=== PATIENT | male | born 1975 | race Caucasian/White ===

== ENCOUNTER 2018-09-03 14:49 | Emergency (ER) | payer BC ==
[~2018-09-03] VITALS: Ht 182.9 cm; Wt 136.4 kg
[2018-09-03 15:42] LABS: INFLUENZA A AMPLIFICATION POSITIVE (NEGATIVE); INFLUENZA B AMPLIFICATION NEGATIVE (NEGATIVE)
[2018-09-03] MEDS ORDERED: ALBUTEROL SULFATE 2.5 MG/0.5 ML INH NEB SOLN NEB ONE (17:45)
[2018-09-03] MEDS ORDERED: VENTAER INH (18:25)
[2018-09-03] MEDS ORDERED: TESS100C PO (18:25)
[2018-09-03] MEDS ORDERED: OSEL75CA PO (18:25)
[2018-09-03 18:37] VITALS: BP 149/75
== END 2018-09-03 18:38 | disposition home or self-care (01) ==
LOC: M ED 14:49
DX: J20.9 Acute bronchitis, unspecified (principal); J09.X2 Influenza due to identified novel influenza A virus with other respiratory manifestations; I10 Essential (primary) hypertension; E66.9 Obesity, unspecified

== ENCOUNTER → 2021-11-25 | Outpatient (REF) | payer BC ==
[~2021-11-25] MED LIST: OSEL75CA PO; TESS100C PO; VENTAER INH
[2021-11-25 13:29] LABS: RSV AMPLIFICATION NEGATIVE (NEGATIVE)
== END ==
LOC: M LAB REF 12:03
PROVIDERS: ATTEND Physician Assistant
DX: R50.9 Fever, unspecified (principal)

== ENCOUNTER → 2022-03-22 | Outpatient (REF) | payer BC | LOC: M SFHCPLAZ 16:49 | PROVIDERS: ATTEND Physician Assistant | DX: R05.1 Acute cough (principal) ==

== ENCOUNTER → 2022-04-25 | Outpatient (CLI) | payer BC ==
[2022-04-25 14:35] LABS: HEMATOCRIT 45.6 % (42.0-52.0); HEMOGLOBIN 14.3 g/dl (13.5-17.5); MEAN CORPUSCULAR HEMOGLOBIN 28.8 pg (27.0-33.0); MEAN CORPUSCULAR HGB CONC 31.4 g/dl (32.0-36.5); MEAN CORPUSCULAR VOLUME 91.9 fl (80.0-96.0); PLATELET COUNT, AUTOMATED 320 10^3/uL (150-450); RED BLOOD COUNT 4.96 10^6/uL (4.30-6.10); WHITE BLOOD COUNT 7.3 10^3/uL (4.0-10.0)
[2022-04-25 15:09] LABS: ALT/SGPT 48 U/L (12-78); BILIRUBIN,TOTAL 0.7 MG/DL (0.2-1.0); BLOOD UREA NITROGEN 8 MG/DL (7-18); CALCIUM LEVEL 9.1 MG/DL (8.5-10.1); CARBON DIOXIDE LEVEL 30 MEQ/L (21-32); CHLORIDE LEVEL 103 MEQ/L (98-107); CHOLESTEROL LEVEL 162 MG/DL (<200); CHOLESTEROL RISK RATIO 3.176 (<5); CREATININE FOR GFR 0.89 MG/DL (0.70-1.30); GLOMERULAR FILTRATION RATE > 60.0 (>60); GLUCOSE, FASTING 96 MG/DL (70-100); HDL CHOLESTEROL 51 MG/DL (>40); LDL CHOLESTEROL 97 MG/DL (<100); NON-HDL-C 111 MG/DL; POTASSIUM SERUM 4.7 MEQ/L (3.5-5.1); SODIUM LEVEL 137 MEQ/L (136-145); TOTAL PROTEIN 7.5 GM/DL (6.4-8.2); TRIGLYCERIDES LEVEL 69 MG/DL (<150)
== END ==
LOC: M PLALAB 08:33
PROVIDERS: ATTEND Nurse Practitioner Adult Health
DX: Z13.220 Encounter for screening for lipoid disorders (principal); Z79.899 Other long term (current) drug therapy

== ENCOUNTER → 2023-07-10 | Outpatient (CLI) | payer SELFPAY ==
[~2023-07-10] MED LIST changes: +BENZ200C70; +DOXY100T; +NAPR-837 PO
== END ==
LOC: M SOG 13:03
PROVIDERS: ATTEND Physician Assistant
DX: M25.562 Pain in left knee (principal)

== ENCOUNTER 2024-10-10 14:28 | Emergency (ER) | payer SELFPAY ==
[~2024-10-10] VITALS: Ht 182.9 cm; Wt 155.0 kg
[2024-10-10 14:38] VITALS: TEMP 98.3; O2SAT 96
[2024-10-10] MEDS ORDERED: AMOX875T2 (14:52)
[2024-10-10 15:28] LABS: BASO % 0.4 % (0.0-1.0); EOS # 0.3 10^3/uL (0.0-0.5); EOS % 2.9 % (0.0-3.0); HEMATOCRIT 44.2 % (42.0-52.0); HEMOGLOBIN 14.3 g/dl (13.5-17.5); LYMPH # 2.6 10^3/uL (1.5-5.0); LYMPH % 30.1 % (24.0-44.0); MEAN CORPUSCULAR HEMOGLOBIN 29.2 pg (27.0-33.0); MEAN CORPUSCULAR HGB CONC 32.4 g/dl (32.0-36.5); MEAN CORPUSCULAR VOLUME 90.2 fl (80.0-96.0); MONO # 0.5 10^3/uL (0.0-0.8); MONO % 5.3 % (2.0-8.0); NEUTROPHILS # 5.2 10^3/uL (1.5-8.5); NEUTROPHILS % 60.9 % (36.0-66.0); PLATELET COUNT, AUTOMATED 327 10^3/uL (150-450); WHITE BLOOD COUNT 8.6 10^3/uL (4.0-10.0)
[2024-10-10 15:46] LABS: APPEARANCE, URINE CLEAR (CLEAR); BACTERIA, URINE AUTO NEGATIVE (NEGATIVE); BILIRUBIN, URINE AUTO NEGATIVE (NEGATIVE); BLOOD, URINE BLOOD 1+ (NEGATIVE); COLOR, URINE YELLOW (YELLOW); GLUCOSE, URINE (UA) AUTO NEGATIVE (NEGATIVE); KETONE, URINE AUTO NEGATIVE (NEGATIVE); LEUKOCYTE ESTERASE, URINE AUTO NEGATIVE (NEGATIVE); MUCUS, URINE SMALL (NEGATIVE); NITRITE, URINE AUTO NEGATIVE (NEGATIVE); PROTEIN, URINE AUTO NEGATIVE (NEGATIVE); RBC, URINE AUTO 3 /HPF (0-3); SPECIFIC GRAVITY URINE AUTO 1.021 (1.002-1.035); SQUAMOUS EPITHELIAL CELL UR AU 0 /HPF (0-6); WBC, URINE AUTO 0 /HPF (0-3)
[2024-10-10 15:53] LABS: ALBUMIN 3.9 G/DL (3.2-5.2); ALKALINE PHOSPHATASE 115 U/L (40-129); ALT/SGPT 43 U/L (7.0-40); AST/SGOT 29 U/L (<34); BILIRUBIN,DIRECT 0.2 MG/DL (<0.4); BILIRUBIN,TOTAL 0.6 MG/DL (0.3-1.2); BLOOD UREA NITROGEN 11 MG/DL (9-23); CARBON DIOXIDE LEVEL 29 MMOL/L (20-31); CHLORIDE LEVEL 102 MMOL/L (98-107); CREATININE FOR GFR 0.84 MG/DL (0.70-1.30); GLOMERULAR FILTRATION RATE > 90.0 (>56); GLUCOSE, FASTING 88 MG/DL (60-100); SODIUM LEVEL 138 MMOL/L (136-145); TOTAL PROTEIN 7.4 G/DL (5.7-8.2)
[2024-10-10 17:56] VITALS: BP 180/80
== END 2024-10-10 18:45 | disposition home or self-care (01) ==
LOC: M ED 14:28
DX: I10 Essential (primary) hypertension (principal); I45.10 Unspecified right bundle-branch block; Z88.8 Allergy status to other drugs, medicaments and biological substances; Z79.2 Long term (current) use of antibiotics; Z79.51 Long term (current) use of inhaled steroids; Z79.899 Other long term (current) drug therapy

== ENCOUNTER 2024-10-10 21:01 | Emergency (ER) | payer SELFPAY ==
[~2024-10-10] VITALS: Ht 182.9 cm; Wt 153.4 kg
[~2024-10-10 21:01] MED LIST changes: +AMOX875T2
[2024-10-10 21:06] VITALS: BP 172/88; TEMP 97.7; O2SAT 89
== END 2024-10-11 03:46 | disposition left against medical advice (07) ==
LOC: M ED 21:01
DX: Z53.21 Procedure and treatment not carried out due to patient leaving prior to being seen by health care provider (principal)

== ENCOUNTER 2024-10-16 09:24 | Emergency (ER) | payer OTHER, SELFPAY ==
[~2024-10-16] VITALS: Ht 182.9 cm; Wt 152.9 kg
[2024-10-16 10:49] LABS: BASO % 0.4 % (0.0-1.0); EOS # 0.3 10^3/uL (0.0-0.5); HEMATOCRIT 45.1 % (42.0-52.0); HEMOGLOBIN 14.7 g/dl (13.5-17.5); LYMPH # 1.9 10^3/uL (1.5-5.0); LYMPH % 22.7 % (24.0-44.0); MEAN CORPUSCULAR HEMOGLOBIN 29.5 pg (27.0-33.0); MEAN CORPUSCULAR HGB CONC 32.6 g/dl (32.0-36.5); MEAN CORPUSCULAR VOLUME 90.4 fl (80.0-96.0); MONO # 0.5 10^3/uL (0.0-0.8); MONO % 5.9 % (2.0-8.0); NEUTROPHILS # 5.7 10^3/uL (1.5-8.5); NEUTROPHILS % 67.6 % (36.0-66.0); PLATELET COUNT, AUTOMATED 329 10^3/uL (150-450); RED BLOOD COUNT 4.99 10^6/uL (4.30-6.10); WHITE BLOOD COUNT 8.4 10^3/uL (4.0-10.0)
[2024-10-16] MEDS: ACETAMINOPHEN 325 MG TAB PO ONE (10:52)
[2024-10-16] MEDS: ASPIRIN 81MG CHEW TABLET PO ONE (10:53)
[2024-10-16 11:13] LABS: LIPASE 38 U/L (12-53)
[2024-10-16 11:15] LABS: ALBUMIN 4.2 G/DL (3.2-5.2); ALKALINE PHOSPHATASE 141 U/L (40-129); ALT/SGPT 44 U/L (7.0-40); AST/SGOT 29 U/L (<34); BILIRUBIN,DIRECT 0.2 MG/DL (<0.4); BILIRUBIN,TOTAL 0.6 MG/DL (0.3-1.2); BLOOD UREA NITROGEN 12 MG/DL (9-23); CALCIUM LEVEL 9.3 MG/DL (8.5-10.1); CARBON DIOXIDE LEVEL 31 MMOL/L (20-31); CHLORIDE LEVEL 102 MMOL/L (98-107); CK-MB VALUE MASS 3.7 NG/ML (<3.6); CREATININE FOR GFR 0.78 MG/DL (0.70-1.30); GLOMERULAR FILTRATION RATE > 90.0 (>56); GLUCOSE, FASTING 82 MG/DL (60-100); POTASSIUM SERUM 4.4 MMOL/L (3.5-5.1); SODIUM LEVEL 138 MMOL/L (136-145); TOTAL PROTEIN 7.6 G/DL (5.7-8.2)
[2024-10-16 11:22] LABS: CPK CREATINE PHOSPHOKINASE 318 U/L (46-171); MB/CK RELATIVE INDEX 1.16 (< OR =4)
[2024-10-16 12:42] LABS: CK-MB VALUE MASS 3.4 NG/ML (<3.6)
[2024-10-16 12:43] LABS: MB/CK RELATIVE INDEX 1.15 (< OR =4)
[2024-10-16 13:11] VITALS: BP 142/71; TEMP 98.2; O2SAT 95
== END 2024-10-16 13:28 | disposition home or self-care (01) ==
LOC: M ED 09:24
DX: R07.89 Other chest pain (principal); I10 Essential (primary) hypertension; I45.10 Unspecified right bundle-branch block; Z88.8 Allergy status to other drugs, medicaments and biological substances; Z79.2 Long term (current) use of antibiotics; Z79.51 Long term (current) use of inhaled steroids; Z79.899 Other long term (current) drug therapy

== ENCOUNTER → 2024-10-16 | Outpatient (CLI) | payer OTHER | LOC: M PLAIMG 15:22 | PROVIDERS: ATTEND Nurse Practitioner Adult Health | DX: J18.9 Pneumonia, unspecified organism (principal) ==

== ENCOUNTER → 2025-03-24 | Outpatient (CLI) | payer OTHER | LOC: M RAD 10:20 | PROVIDERS: ATTEND Family Medicine | DX: N50.811 Right testicular pain (principal); R10.13 Epigastric pain ==

== ENCOUNTER → 2025-05-15 | Outpatient (CLI) | payer OTHER | LOC: M SLEEP HO 13:00 | PROVIDERS: ATTEND Nurse Practitioner Adult Health | DX: N50.811 Right testicular pain (principal); G47.33 Obstructive sleep apnea (adult) (pediatric) ==